=== PATIENT | female | born 1990 | race Caucasian/White ===

== ENCOUNTER 2017-12-23 06:43 | Day surgery (SDC) | payer MEDICAID ==
[~2017-12-23] VITALS: Ht 147.3 cm; Wt 49.9 kg
[~2017-12-23 06:43] MED LIST: LEVO1TAB71 PO
[2017-12-23] MEDS ORDERED: LIDOCAINE HCL/PF 1% 10 MG/ML 30ML VIAL ONE (07:17)
[2017-12-23] MEDS ORDERED: SODIUM BICARBONATE 4% (2.4MEQ) 5ML VIAL IV ONE (07:18)
[2017-12-23] MEDS ORDERED: LIDOCAINE HCL 1% 20ML VIAL (Pyxis) INJ ONE (07:18)
[2017-12-23 07:39] LABS: UCG SCREEN NEGATIVE
[2017-12-23] MEDS ORDERED: DIPHENHYDRAMINE 50MG/ML VIAL ONE (10:29)
[2017-12-23] MEDS ORDERED: CEFAZOLIN SODIUM 1000MG/VIAL ONE (10:29)
[2017-12-23] MEDS ORDERED: PROPOFOL 200MG/20ML VIAL IV ONE (10:30)
[2017-12-23] MEDS ORDERED: FENTANYL CITRATE/PF 50MCG/ML 2ML VIAL ONE (10:30)
[2017-12-23] MEDS ORDERED: MIDAZOLAM HCL 2 MG/2 ML VIAL ONE (10:30)
[2017-12-23] MEDS ORDERED: LIDOCAINE HCL/PF 1% 10 MG/ML 5ML VIAL ONE (10:30)
[2017-12-23] MEDS ORDERED: BUPIVACAINE HCL/PF 0.5% (5MG/ML) 10ML ONE (10:33)
[2017-12-23] MEDS ORDERED: SKIN ADHESIVE 0.7 GM EA TOP ONE (10:34)
[2017-12-23] MEDS ORDERED: MORPHINE SULFATE 2 MG/ML CPJ (NOT FOR IM USE) IV PRN (11:00)
[2017-12-23] MEDS ORDERED: DEXAMETHASONE 4MG/ML 1ML VIAL ONE (11:44)
[2017-12-23] MEDS ORDERED: ONDANSETRON HCL 4MG/2ML VIAL ONE (11:44)
[2017-12-23] MEDS ORDERED: METOCLOPRAMIDE HCL 10MG/2ML VIAL ONE (11:44)
[2017-12-23] MEDS ORDERED: MORPHINE SULFATE 4 MG/ML CPJ (NOT FOR IM USE) IV PRN (12:49)
[2017-12-23 12:56] VITALS: BP 115/74
== END 2017-12-23 14:00 | disposition home or self-care (01) ==
LOC: OR 06:43
PROVIDERS: ATTEND Surgery
DX: D24.1 Benign neoplasm of right breast (principal)
CPT/HCPCS: 19125; 76942; 81025; 88307; C1769; G0168; J0690; J1100; J1200; J2250; J2270; J2405; J2765; J3010; J3490; J7120; J2704